=== PATIENT | male | born 1965 | race Caucasian/White ===

== ENCOUNTER → 2021-11-17 | Outpatient (CLI) | payer MEDICARE ==
[~2021-11-17] MED LIST: ALPRAZOLAM0.5 MG PO; BACLOFEN10 MG PO; CEFDINIR300 MG PO; CIALIS20 MG PO; CREON DR 36,001 EACH PO; CREON PO; CYMBALTA60 MG PO; DEXILANT60 MG PO; DILANTIN 100 M100 MG PO; FLOMAX0.4 MG PO; HYDROCODON-ACE1 EAC6 PO; IMITREX100 MG PO; IRON325 M1 PO; LEXAPRO20 MG PO; LYRICA150 MG PO; METHOCARBAMOL500 MG PO; MOBIC7.5 MG PO; OXYCODONE HCL15 MG PO; PERCOCET 10-321 EACH PO; PERCOCET 7.5-31 EACH PO; PERCOCET PO; PHENERGAN 25 MG25 M1 PO; REMERON15 MG PO; REMERON30 MG PO; SINGULAIR10 MG PO; TRAZODONE HCL150 MG PO; TRAZODONE HCL50 MG PO; ZANAFLEX4 MG PO; ZETIA10 MG PO; ZOFRAN 4 MG TAB4 MG PO; ZOFRAN ODT 4 MG4 MG PO
[2021-11-17 09:08] LABS: HEMOGLOBIN 12.7 gm/dl (14.0-17.5); RED BLOOD COUNT 3.8 M/UL (4.20-5.50); WHITE BLOOD COUNT 8.6 K/UL (4.5-11.0)
[2021-11-17 09:28] LABS: BUN/CREATININE RATIO 12 (0-10)
== END ==
LOC: OPSV2 08:00 → EDSTATUS 08:00 → OPSV2 08:02
PROVIDERS: Orthopaedic Surgery
DX: Z01.818 Encounter for other preprocedural examination (principal); M53.3 Sacrococcygeal disorders, not elsewhere classified
CPT/HCPCS: 71046; 80048; 81001; 85025; 87081; 93005